=== PATIENT | female | born 1940 | race American Indian/Alaskan Native ===

== ENCOUNTER 2018-10-27 10:46 | Outpatient (CLI) | payer MEDICARE ==
--- NOTE | 2018-10-27 20:35 | Vascular Lab Report ---
PROCEDURE: VL VENOUS DUPLEX LE LT TECHNIQUE: Duplex Doppler ultrasound of the left common and superficial femoral, popliteal, posterio r tibial, and proximal deep femoral and greater saphenous veins was attempted. Lassiter scale imaging wit h and without compression, spectral waveform analysis with and without augmentation, and color flow D oppler were employed. HISTORY: DVT COMPARISONS: None FINDINGS: Deep Venous Thrombus: None Soft tissue abnormality: None Other: None IMPRESSION: No evidence of deep venous thrombosis This document is electronically signed by Jose Alejandro Luna MD., October 27 2018 08:32:45 PM ET
== END 2018-10-27 10:47 | disposition home or self-care (01) ==
LOC: VAS 10:46
PROVIDERS: ATTEND Podiatrist Foot Surgery
DX: I82.402 Acute embolism and thrombosis of unspecified deep veins of left lower extremity (principal)